=== PATIENT | female | born 1960 | race Hispanic/Latino ===

== ENCOUNTER 2023-09-05 05:01 | Observation (INO) | payer OTHER ==
[2023-08-31 10:20] LABS: BASOPHILS # (AUTO) 0.02 K/uL (0.00-0.20); BASOPHILS % (AUTO) 0.4 % (0.0-5.0); EOSINOPHILS # (AUTO) 0.31 K/uL (0.00-0.70); HEMATOCRIT 41.5 % (36-48); IMMATURE GRANULOCYTE ABSOLUTE 0.01 K/uL (0-1); LYMPHOCYTES # (AUTO) 1.8 K/uL (1.0-4.8); LYMPHOCYTES % (AUTO) 34.2 % (21.0-51.0); MEAN CORPUSCULAR HEMOGLOBIN 31.1 pg (27.0-33.0); MEAN CORPUSCULAR HGB CONC 32.5 g/dL (32.0-36.0); MEAN CORPUSCULAR VOLUME 95.6 fL (79-99); MONOCYTES # (AUTO) 0.4 K/uL (0.1-1.0); MONOCYTES % (AUTO) 8.5 % (3.0-13.0); NEUTROPHILS # (AUTO) 2.6 K/uL (1.8-7.7); NEUTROPHILS % (AUTO) 50.7 % (40.0-77.0); PLATELET COUNT (AUTO) 302 K/uL (130-400); RED BLOOD CELL COUNT(AUTO) 4.34 MIL/uL (4.00-5.50); RED CELL DISTRIBUTION WIDTH 12.3 % (11.0-15.5); WHITE BLOOD COUNT (AUTO) 5.2 K/uL (4.8-10.8)
[2023-08-31 10:27] LABS: CREATININE 0.6 mg/dL (0.5-1.5); POTASSIUM 3.9 mmol/L (3.5-5.1)
[2023-08-31 10:29] VITALS: BP 148/80; PULSE 67; RESP 18
[2023-08-31 10:31] LABS: INR 0.94 (0.85-1.15); PROTHROMBIN TIME 10.9 SEC (9.6-11.6)
[2023-08-31 10:33] LABS: PARTIAL THROMBOPLASTIN TIME 30.8 SEC (26.3-35.5)
[2023-09-05] VITALS (29 sets, daily range): BP systolic 127–163; BP diastolic 64–88; PULSE 53–75; RESP 9–19; O2SAT 97–100
[~2023-09-05] VITALS: Ht 154.9 cm; Wt 66.3 kg
[~2023-09-05 05:01] MED LIST: ENAL-87 PO; LEVO50CA4 PO
[2023-09-05] MEDS ORDERED: 0.9%NACL 100ML 48.45 ML, ROPIVACAINE 0.5% 5MG/ML 30ML 246.25 MG, KETOROLAC TROMETHAMINE... IV PRN ×5 (06:30)
[2023-09-05] MEDS ORDERED: CEFAZOLIN SODIUM 2 GM VIAL ONE (06:52)
[2023-09-05] MEDS ORDERED: LACTATED RINGERS 1000ML 1,000 ML IV ONE (06:52)
[2023-09-05] MEDS ORDERED: CEFAZOLIN SODIUM 1 GM VIAL ONE (08:42)
[2023-09-05] MEDS ORDERED: TRANEXAMIC ACID 1000MG/10ML ONE (08:43)
[2023-09-05] MEDS ORDERED: GENTAMICIN SULFATE 80 MG/2 ML VIAL ONE (08:43)
[2023-09-05] MEDS ORDERED: HYDROMORPHONE 1 MG INJ ONE (10:12)
[2023-09-05] MEDS ORDERED: FAMOTIDINE 20MG VIAL IV ONE (10:12)
[2023-09-05] MEDS ORDERED: LIDOCAINE PF 100MG/5ML (2%) SYRINGE 5ML ONE (10:18)
[2023-09-05] MEDS ORDERED: SUCCINYLCHOLINE 200MG/10ML SYR ONE (10:19)
[2023-09-05] MEDS ORDERED: GLYCOPYRROLATE 1 MG/5 ML SYRINGE ONE (10:19)
[2023-09-05] MEDS ORDERED: FENTANYL CITRATE PF 50 MCG/1 ML 2ML VIAL ONE ×2 (10:19→11:50)
[2023-09-05] MEDS ORDERED: ROCURONIUM 10MG/1ML SYR 10 MG/ML ML ONE (10:19)
[2023-09-05] MEDS ORDERED: PROPOFOL 10 MG/ML 20ML VIAL IV ONE ×2 (10:19→13:25)
[2023-09-05] MEDS ORDERED: MIDAZOLAM HCL 1 MG/ML 2ML VIAL ONE (10:20)
[2023-09-05] MEDS ORDERED: ONDANSETRON 4MG INJ ONE ×2 (10:57→14:02)
[2023-09-05] MEDS ORDERED: NEOSTIGMINE 5MG/5ML SYR IV ONE (13:24)
[2023-09-05] MEDS ORDERED: MEPERIDINE-PF 25 MG/ML SYG ONE (14:02)
[2023-09-05] MEDS ORDERED: ONDANSETRON 4MG INJ IVP PRN (16:00)
[2023-09-05] MEDS ORDERED: HYDROMORPHONE PCA 10 MG/50 ML 50 ML IV PRN (16:00)
[2023-09-05] MEDS ORDERED: LACTULOSE 20 GM/30 ML UDCUP PO PRN (16:00)
[2023-09-05] MEDS ORDERED: DIPHENOXYLATE HCL/ATROPINE 2.5/0.025 MG TAB PO PRN (16:00)
[2023-09-05] MEDS ORDERED: MAG/ALUM/SIMETH 30 ML UDCUP PO PRN (16:00)
[2023-09-05] MEDS ORDERED: DiphenhydrAMINE HCL 50 MG/ML VIAL IM PRN (16:00)
[2023-09-05] MEDS ORDERED: ACETAMINOPHEN 325 MG TAB PO PRN ×2 (16:00)
[2023-09-05] MEDS ORDERED: DIPHENHYDRAMINE HCL 25 MG CAPSULE PO PRN ×2 (16:00)
[2023-09-05] MEDS ORDERED: BENZOCAINE/MENTH/CETYLPYRD CL 1 EACH LOZENGE MM PRN (16:00)
[2023-09-05] MEDS: 0.9%NACL 1000ML 1,000 ML IV SCH (16:42)
[2023-09-05] MEDS: CEFAZOLIN SODIUM 2 GM VIAL IVPB SCH (18:17)
[2023-09-05] MEDS: ENALAPRIL MALEATE 5 MG TAB PO SCH (20:12)
[2023-09-06] VITALS (7 sets, daily range): BP systolic 102–127; BP diastolic 52–65; PULSE 74–90; RESP 16–20; O2SAT 100
[2023-09-06] MEDS: CEFAZOLIN SODIUM 2 GM VIAL IVPB SCH (01:25)
[2023-09-06] MEDS: TRAMADOL HCL 50 MG TABLET PO PRN ×3 (01:58→18:12)
[2023-09-06] MEDS: 0.9%NACL 1000ML 1,000 ML IV SCH ×3 (03:08→22:00)
[2023-09-06] MEDS: LEVOTHYROXINE 50 MCG TABLET PO SCH (05:44)
[2023-09-06 06:16] LABS: HEMATOCRIT 34.9 % (36-48); MEAN CORPUSCULAR HEMOGLOBIN 31.3 pg (27.0-33.0); MEAN CORPUSCULAR HGB CONC 32.1 g/dL (32.0-36.0); MEAN CORPUSCULAR VOLUME 97.5 fL (79-99); RED BLOOD CELL COUNT(AUTO) 3.58 MIL/uL (4.00-5.50); RED CELL DISTRIBUTION WIDTH 12.4 % (11.0-15.5); WHITE BLOOD COUNT (AUTO) 10.1 K/uL (4.8-10.8)
[2023-09-06 06:38] LABS: CREATININE 0.7 mg/dL (0.5-1.5); POTASSIUM 4.3 mmol/L (3.5-5.1)
[2023-09-06 06:39] LABS: INR 0.95 (0.85-1.15); PROTHROMBIN TIME 11.1 SEC (9.6-11.6)
[2023-09-06 06:41] LABS: PARTIAL THROMBOPLASTIN TIME 25.1 SEC (26.3-35.5)
[2023-09-06] MEDS ORDERED: LEVOTHYROXINE 50 MCG TABLET PO SCH (09:00)
[2023-09-06] MEDS: RIVAROXABAN 10 MG TABLET PO SCH (09:35)
[2023-09-06] MEDS: ENALAPRIL MALEATE 5 MG TAB PO SCH (20:23)
[2023-09-06] MEDS: ACETAMINOPHEN 325 MG TAB PO PRN (20:26)
[2023-09-07 00:10] VITALS: BP 106/44; PULSE 97; RESP 16
[2023-09-07 04:06] VITALS: BP 113/60; PULSE 82; RESP 18
[2023-09-07 05:09] LABS: HEMATOCRIT 32.8 % (36-48); MEAN CORPUSCULAR HEMOGLOBIN 31.2 pg (27.0-33.0); MEAN CORPUSCULAR VOLUME 97.3 fL (79-99); RED BLOOD CELL COUNT(AUTO) 3.37 MIL/uL (4.00-5.50); RED CELL DISTRIBUTION WIDTH 12.6 % (11.0-15.5); WHITE BLOOD COUNT (AUTO) 6.7 K/uL (4.8-10.8)
[2023-09-07 05:17] LABS: CREATININE 0.7 mg/dL (0.5-1.5); POTASSIUM 3.7 mmol/L (3.5-5.1)
[2023-09-07 05:21] LABS: INR 1.06 (0.85-1.15); PROTHROMBIN TIME 12.3 SEC (9.6-11.6)
[2023-09-07] MEDS: LEVOTHYROXINE 50 MCG TABLET PO SCH (06:17)
[2023-09-07] MEDS: ACETAMINOPHEN 325 MG TAB PO PRN ×2 (06:20→13:43)
[2023-09-07 07:57] VITALS: BP 110/63; PULSE 74; RESP 16
[2023-09-07] MEDS: RIVAROXABAN 10 MG TABLET PO SCH (08:24)
[2023-09-07] MEDS: 0.9%NACL 1000ML 1,000 ML IV SCH ×2 (08:24→12:38)
[2023-09-07 11:28] VITALS: BP 114/67; PULSE 71; RESP 17
== END 2023-09-07 14:30 | disposition home health service (06) ==
LOC: DAH 05:01 → DAHIP 05:02 → DAH 05:02 → 4BH 15:20
PROVIDERS: ADMIT Orthopaedic Surgery; ATTEND Orthopaedic Surgery
DX: M17.12 Unilateral primary osteoarthritis, left knee (principal); I10 Essential (primary) hypertension; E03.9 Hypothyroidism, unspecified; Z96.651 Presence of right artificial knee joint; Z79.899 Other long term (current) drug therapy
CPT/HCPCS: 80048 ×3; 85025; 85610 ×3; 85730 ×2; 36415 ×3; 87641; 27447; 96376; 96365; 96366 ×4; 97161; 97012; 97116 ×4; 97530 ×7; 96368; 85027 ×2; A6260; G0378 ×43; A4663; J7120 ×2; A4215 ×2; A4649 ×4; J3490 ×3; J3010 ×2; J0690 ×4; J1170 ×2; J0330; J2710; J0171; J2001; J1580; J2250; J2704 ×2; J2405 ×2; J1885; J2175; J2795; J0735; A6223; C1763 ×2; C1776; A4223; A4222; A4221; A6450; J7030; A4510; 96367